=== PATIENT | female | born 1990 | race American Indian/Alaskan Native ===

== ENCOUNTER 2019-11-11 00:24 | Emergency (ER) | payer BC, MEDICAID ==
[2019-11-11] MEDS ORDERED: dexAMETHasone 20 MG/5 ML VIAL IV ONE (00:50)
[2019-11-11] MEDS ORDERED: diphenhydrAMINE 50 MG/ML VIAL IV ONE (00:50)
[2019-11-11] MEDS ORDERED: FAMOTIDINE 20 MG TAB PO ONE (00:50)
--- NOTE | 2019-11-11 01:47 | Emergency Department Report ---
ED Allergic Reaction HPI - General Chief complaint: Allergic Reaction Stated complaint: ALLERGIC REACTION Source: patient Mode of arrival: Ambulatory Limitations: No Limitations - History of Present Illness Initial Comments: Patient is a 28-year-old -[place] female with no past medical history presents to the ED with complaint of acute onset persistent severe diffuse itchy burning erythematous maculopapular urticarial rashes after for the last 1 hour. Patient states that the last food she ate was seafood which comprised of shrimp and that she has previously had an allergic reaction to shrimp. Patient states that she has been eating the same food for the last 3 days but did not have any initial allergic reaction from the same. Patient denies swollen lips, swollen tongue, swollen throat, dysphagia, dysphonia, facial swelling, nasal and sinus congestion, cough, wheezing, shortness of breath, chest pain, nausea, vomiting, diarrhea, abdominal pain, syncope or dizziness and lightheadedness, fever and chills. Patient states that she did not take any medication prior to arrival in the ED. MD Complaint: allergic reaction, hives, other (diffuse itching, burning sensation and tingling) -: Sudden, hour(s) (1) Exposure: food (sea food) Symptoms: rash, itching. denies: facial swelling, lip swelling, difficulty swallowing, difficulty breathing, orolingual swelling, hoarseness, syncopy, dizziness, nausea, vomiting, other, abdominal pain Severity: severe Treatment Prior to Arrival: none Previous Allergy History: other (yes, to shrimp) - Related Data Home Medications Medication Instructions Recorded Confirmed Last Taken Pnv No.95/Ferrous Fum/Folic AC 1 each PO DAILY 05/04/16 05/04/16 05/03/16 15:00 [ Caplet] Previous Rx's Medication Instructions Recorded Last Taken Type Docusate Sodium [Colace] 100 mg PO BID #60 capsule 05/06/16 Unknown Rx Ferrous Sulfate [Feosol 325 MG tab] 325 mg PO BID #60 tablet 05/06/16 Unknown Rx Ibuprofen [Motrin 800 MG tab] 800 mg PO TID PRN #30 tablet 05/06/16 Unknown Rx oxyCODONE /ACETAMINOPHEN [Percocet 2 tab PO Q4H PRN #40 tablet 05/06/16 Unknown Rx 5/325 mg] Famotidine [Pepcid] 20 mg PO Q12H #30 tablet 11/11/19 Unknown Rx Prednisone [predniSONE 10 mg 10 mg PO .TAPER #21 tab.ds.pk 11/11/19 Unknown Rx (6-Day Pack, 21 Tabs)] diphenhydrAMINE [Benadryl CAP] 25 mg PO Q6HR PRN #30 capsule 11/11/19 Unknown Rx Allergies Allergy/AdvReac Type Severity Reaction Status Date / Time iodine Allergy Intermediate Swelling Verified 05/04/16 03:14 ED Review of Systems ROS: Stated complaint: ALLERGIC REACTION Other details as noted in HPI Constitutional: denies: chills, fever Eyes: denies: eye pain, eye discharge, vision change ENT: denies: ear pain, throat pain Respiratory: denies: cough, shortness of breath, wheezing Cardiovascular: denies: chest pain, palpitations Endocrine: no symptoms reported Gastrointestinal: denies: abdominal pain, nausea, diarrhea Genitourinary: denies: urgency, dysuria, discharge Musculoskeletal: denies: back pain, joint swelling, arthralgia Skin: rash, change in color, pruritus, other (Diffuse erythematous maculopapular urticarial itchy rashes). denies: lesions Neurological: denies: headache, weakness, paresthesias Psychiatric: denies: anxiety, depression Hematological/Lymphatic: denies: easy bleeding, easy bruising ED Past Medical Hx - Past Medical History Hx Hypertension: No Hx Congestive Heart Failure: No Hx Diabetes: No Hx Deep Vein Thrombosis: No Hx Renal Disease: No Hx Sickle Cell Disease: No Hx Seizures: No Hx Asthma: Yes (activity induced) Hx COPD: No Hx HIV: No - Social History Smoking Status: Never Smoker Substance Use Type: None - Medications Home Medications: Home Medications Medication Instructions Recorded Confirmed Last Taken Type Pnv No.95/Ferrous Fum/Folic AC 1 each PO DAILY 05/04/16 05/04/16 05/03/16 15:00 History [ [facility]] Docusate Sodium [Colace] 100 mg PO BID #60 capsule 05/06/16 Unknown Rx Ferrous Sulfate [Feosol 325 MG tab] 325 mg PO BID #60 tablet 05/06/16 Unknown Rx Ibuprofen [Motrin 800 MG tab] 800 mg PO TID PRN #30 tablet 05/06/16 Unknown Rx oxyCODONE /ACETAMINOPHEN [Percocet 2 tab PO Q4H PRN #40 tablet 05/06/16 Unknown Rx 5/325 mg] Famotidine [Pepcid] 20 mg PO Q12H #30 tablet 11/11/19 Unknown Rx Prednisone [predniSONE 10 mg 10 mg PO .TAPER #21 tab.ds.pk 11/11/19 Unknown Rx (6-Day Pack, 21 Tabs)] diphenhydrAMINE [Benadryl CAP] 25 mg PO Q6HR PRN #30 capsule 11/11/19 Unknown Rx ED Physical Exam - General Limitations: No Limitations General appearance: alert, in no apparent distress - Head Head exam: Present: atraumatic, normocephalic, normal inspection - Eye Eye exam: Present: normal appearance, PERRL, EOMI Pupils: Present: normal accommodation - ENT ENT exam: Present: normal exam, normal orophraynx, mucous membranes moist, TM's normal bilaterally, normal external ear exam - Neck Neck exam: Present: normal inspection, full ROM - Respiratory Respiratory exam: Present: normal lung sounds bilaterally. Absent: respiratory distress, wheezes, rales, chest wall tenderness, accessory muscle use, decreased breath sounds - Cardiovascular Cardiovascular Exam: Present: regular rate, normal rhythm, normal heart sounds. Absent: systolic murmur, diastolic murmur, rubs, gallop - GI/Abdominal GI/Abdominal exam: Present: soft, normal bowel sounds. Absent: tenderness, guarding, rebound, hyperactive bowel sounds - Extremities Exam Extremities exam: Present: normal inspection, full ROM, normal capillary refill - Back Exam Back exam: Present: normal inspection, full ROM. Absent: tenderness, CVA tenderness (R), CVA tenderness (L), muscle spasm, vertebral tenderness - Neurological Exam Neurological exam: Present: alert, oriented X3, CN II-XII intact, normal gait, reflexes normal - Psychiatric Psychiatric exam: Present: normal affect, normal mood, anxious - Skin Skin exam: Present: warm, dry, intact, rash, erythema, urticaria, other (Diffuse erythematous maculopapular urticarial rashes) ED Medical Decision Making - Medical Decision Making This is a 28-year-old -[place] female with no past medical history presents to the ED with complaint of acute onset persistent severe diffuse itchy burning erythematous maculopapular urticarial rashes after for the last 1 hour. Patient states that the last food she ate was seafood which comprised of shrimp and that she has previously had an allergic reaction to shrimp. Patient states that she has been eating the same food for the last 3 days but did not have any initial allergic reaction from the same. In the ED, patient is alert and oriented x3 and is not in any distress and is hemodynamically stable but anxious. Patient was treated in the ED with Decadron IV, Benadryl and Pepcid and observed for about 2 hours. On reevaluation, patient's itching and rashes resolved. Patient feeling better and was discharged home on steroid Dosepak, Benadryl and Pepcid prescriptions. Patient was advised to avoid any seafood containing products because of her history of iodine allergy. Patient was advised to follow-up with her primary care physician in 3 to 5 days for reevaluation or return to the ED immediately if symptoms get worse. - Differential Diagnosis allergic reaction; Urticaria; Itching; Angioedema; anaphylaxis Critical care attestation.: If time is entered above; I have spent that time in minutes in the direct care of this critically ill patient, excluding procedure time. ED Disposition Clinical Impression: Allergic to seafood, Acute urticaria, Itching with irritation Acute allergic reaction Qualifiers: Encounter type: initial encounter Qualified Code(s): T78.40XA - Allergy, unspecified, initial encounter Disposition: DC-01 TO HOME OR SELFCARE Is pt being admited?: No Does the pt Need Aspirin: No Condition: Stable Instructions: Urticaria (ED), Allergies (ED), Itchy Skin (ED) Additional Instructions: Take medications with food, drink plenty fluids and follow-up with your primary care physician in 3 to 5 days for reevaluation. Avoid any seafood containing products since you are allergic to iodine. Return to the ED immediately if symptoms get worse. Prescriptions: diphenhydrAMINE [Benadryl CAP] 25 mg PO Q6HR PRN #30 capsule PRN Reason: Itching Famotidine [Pepcid] 20 mg PO Q12H #30 tablet Prednisone [predniSONE 10 mg (6-Day Pack, 21 Tabs)] 10 mg PO .TAPER #21 tab.hayley Referrals: [facility] [Provider Group] - 3-5 Days Forms: Work/School Release Form(ED) Time of Disposition: 01:50 Print Language: FRENCH
[2019-11-11 02:38] VITALS: BP 120/84
== END 2019-11-11 02:05 | disposition home or self-care (01) ==
LOC: ED 00:24
DX: T78.1XXA Other adverse food reactions, not elsewhere classified, initial encounter (principal); L50.8 Other urticaria; L29.9 Pruritus, unspecified; J45.909 Unspecified asthma, uncomplicated; Z91.013 Allergy to seafood; Z91.041 Radiographic dye allergy status; Z79.899 Other long term (current) drug therapy; X58.XXXA Exposure to other specified factors, initial encounter
CPT/HCPCS: 96374; 96375; 99282; J1100; J1200